=== PATIENT | female | born 1945 | race Caucasian/White ===

== ENCOUNTER → 2021-08-15 | Outpatient (CLI) | payer MEDICARE | END | disposition home or self-care (01) | LOC: OPSV 08:00 | PROC: 02HV33Z Insertion of Infusion Device into Superior Vena Cava, Percutaneous Approach (ICD-10-PCS; principal; 2021-08-15) | DX: C22.1 Intrahepatic bile duct carcinoma (principal); E61.2 Magnesium deficiency | CPT/HCPCS: C1751 ==

== ENCOUNTER → 2021-12-27 | Outpatient (CLI) | payer MEDICARE | LOC: CT 15:00 | DX: C22.1 Intrahepatic bile duct carcinoma (principal); E61.2 Magnesium deficiency; Z98.890 Other specified postprocedural states | CPT/HCPCS: 74160; Q9967 ==